=== PATIENT | male | born 1980 | race Caucasian/White ===

== ENCOUNTER 2016-09-23 18:10 | Emergency (ER) | payer SELFPAY ==
[2016-09-23] MEDS ORDERED: LISINOPRIL 10 MG TABLET PO ONE (19:30)
[2016-09-23] MEDS ORDERED: HYDROCHLOROTHIAZIDE 12.5 MG CAPSULE PO ONE (19:30)
--- NOTE | 2016-09-23 19:34 | ER Document Report ---
HPI - HPI Patient complains to provider of: high blood pressure Pain Level: 5 Context: Patient is a 35 year old male that comes to the ED for chief complaint of elevated blood pressure. He states he is out of his blood pressure medication, lisinopril 20 mg/hydrochlorthiazide 12.5 mg. He has been on that this for approximately 2 months. He states since that time he has had more frequent headaches, intermittent tingling sensations in his hands and feet. He states he had a migraine headache earlier today and vomited with this, however he states now his headache is gone and he has no current symptoms. He denies any chest pain. He does not have a provider in this area. - CARDIOVASCULAR Cardiovascular: DENIES: Chest pain - DERM Skin Color: Normal Past Medical History - General Information source: Patient - Social History Smoking Status: Never Smoker Frequency of alcohol use: None Drug Abuse: None Lives with: Family Family History: Reviewed & Not Pertinent Patient has suicidal ideation: No Patient has homicidal ideation: No - Past Medical History Cardiac Medical History: Reports: Hx Hypertension - no medication x1 month Neurological Medical History: Reports: Hx Migraine Renal/ Medical History: Denies: Hx Peritoneal Dialysis Surgical Hx: Negative - Immunizations Hx Diphtheria, Pertussis, Tetanus Vaccination: Yes Vertical Provider Document - CONSTITUTIONAL General Appearance: WD/WN, No Apparent Distress - INFECTION CONTROL TRAVEL OUTSIDE OF THE [place] IN LAST 30 DAYS: No - HEENT HEENT: Atraumatic, Normal ENT Exam, Normocephalic - NECK Neck: Normal Inspection - RESPIRATORY Respiratory: Breath Sounds Normal, No Respiratory Distress O2 Sat by Pulse Oximetry: 98 - CARDIOVASCULAR Cardiovascular: Regular Rate, Regular Rhythm - GI/ABDOMEN Gastrointestinal: Abdomen Soft, Abdomen Non-Tender - BACK Back: Normal Inspection - MUSCULOSKELETAL/EXTREMETIES Musculoskeletal/Extremeties: MAEW, FROM, Non-Tender - NEURO Level of Consciousness: Awake, Alert, Appropriate - DERM Integumentary: Warm, Dry, No Rash Course - Re-evaluation Re-evalutation: Patient denies any current symptoms including headache, chest pain. He is well- appearing. He is smiling, talkative, relaxed. Had a normal neurological exam, unremarkable vital signs other than elevated blood pressure. Restarting home medication. Giving prescription, referring to local primary care. Discussed return precautions. Patient states understanding and agreement. - Vital Signs Vital signs: Temp Pulse Resp BP Pulse Ox 98.3 F 85 20 177/113 H 98 09/23/16 18:15 09/23/16 18:15 09/23/16 18:15 09/23/16 18:15 09/23/16 18:15 Discharge - Discharge Clinical Impression: Uncontrolled hypertension Condition: Stable Disposition: HOME, SELF-CARE Additional Instructions: Please take prescribed blood pressure medication daily. Please follow up closely with one of the referrals placed. Return to the ED for any returned, worsening, or new concerning symptoms. Prescriptions: Lisinopril/Hydrochlorothiazide [Lisinopril-Hctz 20-12.5 mg Tab] 1 each PO DAILY #60 tablet Forms: Return to Work Referrals: [facility] [place] [Provider Group] - Follow up as needed
[2016-09-23 19:52] VITALS: BP 163/103
== END 2016-09-23 20:05 | disposition home or self-care (01) ==
LOC: ER 18:10
DX: I10 Essential (primary) hypertension (principal); R20.0 Anesthesia of skin; Z79.899 Other long term (current) drug therapy
CPT/HCPCS: 99283